=== PATIENT | male | born 1980 | race Caucasian/White ===

== ENCOUNTER 2020-06-10 20:18 | Emergency (ER) | payer SELFPAY ==
[2020-06-10 20:27] VITALS: BP 148/58
[2020-06-10] MEDS ORDERED: IBUPROFEN 800 MG TABLET PO ONE (20:35)
--- NOTE | 2020-06-10 20:36 | ER Document Report ---
HPI - HPI Time Seen by Provider: 06/10/20 20:32 Pain Level: 4 Notes: 39-year-old male patient presenting to the emergency department after falling down 2 stairs. He is complaining of left foot and ankle pain. He reports that is difficult to bear weight on this. He denies any other concerns at this time. - ROS Systems Reviewed and Negative: Yes All other systems reviewed and negative - MUSCULOSKELETAL Musculoskeletal: REPORTS: Extremity pain Past Medical History - General Information source: Patient - Social History Smoking Status: Never Smoker Family History: None Patient has homicidal ideation: No - Medical History Medical History: Negative Surgical Hx: Negative Vertical Provider Document - CONSTITUTIONAL Notes: PHYSICAL EXAMINATION: GENERAL: Well-appearing, well-nourished and in no acute distress. HEAD: Atraumatic, normocephalic. EYES: Pupils equal round extraocular movements intact, conjunctiva are normal. ENT: Nares patent NECK: Normal range of motion LUNGS: No respiratory distress Musculoskeletal: Mild swelling noted to left foot and ankle, tenderness on the medial and lateral aspects of the ankle, tenderness over the dorsal surface of the foot. Strong dorsalis pedis pulse. Cap refill less than 3 seconds distally, normal sensation distally. No obvious deformity. NEUROLOGICAL: Normal speech. PSYCH: Normal mood, normal affect. SKIN: Warm, Dry, normal turgor, no rashes or lesions noted. Course - Re-evaluation Re-evalutation: No acute osseous injury noted on x-rays of the foot and ankle. Patient will be placed on crutches, encouraged to ice, elevate and take [id number] pain medications. - Vital Signs Vital signs: Temp Pulse Resp BP Pulse Ox 98.6 F 83 20 148/58 H 97 06/10/20 20:24 06/10/20 20:24 06/10/20 20:24 06/10/20 20:24 06/10/20 20:24 Procedures - Immobilization Left foot Pre-Proc Neuro Vasc Exam: Normal Immobilizer type: Molina wrap, Crutches, Post-op shoe Performed by: PCT Post-Proc Neuro Vasc Exam: Normal Discharge - Discharge Clinical Impression: Foot injury Qualifiers: Encounter type: initial encounter Laterality: left Qualified Code(s): S99.922A - Unspecified injury of left foot, initial encounter Condition: Stable Disposition: HOME, SELF-CARE Additional Instructions: The x-ray of your foot and ankle were both negative for any acute fracture dislocation. Please try to stay off of it for the next couple of days until the pain subsides. Take ibuprofen 600 mg every 6 hours. Try to ice and elevate the extremity as much as possible. Return if worsening.
--- NOTE | 2020-06-10 21:26 | RADIOLOGY REPORT (SQ) ---
EXAM DESCRIPTION: XR ANKLE 3 VIEWS COMPLETED DATE/TME: 06/10/2020 20:36 CLINICAL HISTORY: 39 years, Male, twisted foot/ankle, unable to bear weight COMPARISON: None. FINDINGS: No fracture or dislocation. Soft tissues are unremarkable. IMPRESSION: No acute abnormality.
--- NOTE | 2020-06-10 21:27 | RADIOLOGY REPORT (SQ) ---
EXAM DESCRIPTION: XR FOOT 3 VIEWS COMPLETED DATE/TME: 06/10/2020 20:36 CLINICAL HISTORY: 39 years, Male, twisted foot/ankle, unable to bear weight COMPARISON: None. FINDINGS: No fracture or dislocation. Soft tissues are unremarkable. IMPRESSION: No acute abnormality.
== END 2020-06-10 23:20 | disposition home or self-care (01) ==
LOC: ER 20:18
DX: S99.922A Unspecified injury of left foot, initial encounter (principal); M25.572 Pain in left ankle and joints of left foot; W10.9XXA Fall (on) (from) unspecified stairs and steps, initial encounter
CPT/HCPCS: 99283